=== PATIENT | female | born 1995 | race American Indian/Alaskan Native ===

== ENCOUNTER 2016-10-07 14:02 | Emergency (ER) | payer MEDICAID ==
[2016-10-07 14:30] VITALS: BP 106/67
--- NOTE | 2016-10-07 14:42 | Emergency Department Report ---
Chief Complaint: Abdominal Pain Stated Complaint: N/V SEVERE CRAMPS Time Seen by Provider: 10/07/16 14:37 - HPI History of Present Illness: 20 y/o female complain of abdominal pain x 2 weeks.pt state she unaware when last menstrual cycle .pt complain of n/v at present .denies any prior medical treatment . - ROS Review of Systems: per HPI - Exam Vital Signs: Vital Signs 10/07/16 14:27 Temperature 98.8 F Pulse Rate 66 Respiratory 16 Rate Blood Pressure 106/67 O2 Sat by Pulse 99 Oximetry Physical Exam: GENERAL: The patient is well-developed and well-nourished. Patient is in NAD. HENT: Normocephalic. Atraumatic. Patient has moist mucous membranes. Throat: No erythema, swelling or exudates. Ears:Tympanic membranes pearly branch ,intact , and free of exudate and erythema . EYES: Extraocular motions are intact, PERRL NECK: Supple. No meningitic signs are noted. There is no adenopathy noted. CHEST/LUNGS: Clear to auscultation bilaterally. No wheezing, rales or rhonchi noted. There is no respiratory distress noted. HEART/CARDIOVASCULAR: Regular rate and rhythm. Normal S1 S2. No murmurs, rubs , clicks, or gallops. ABDOMEN: Abdomen is soft, nontender.. Bowel sounds normoactive. There is no abdominal distention. Negative rebound tenderness. : Deferred. SKIN: There is no rash. There is no edema. There is no diaphoresis.Normal skin turgor NEURO: The patient is A&Ox3. The patient has no focal neurologic deficits. MUSCULOSKELETAL: There is no tenderness or deformity. There is no limitation range of motion. posture erect.Spine aligned,no deformities. PSYCH: Pt has appropriate mood and affect. MSE screening note: Focused history and physical exam performed. Due to findings the following was ordered: ED Disposition for MSE Condition: Stable Instructions: Abdominal Pain (ED)
[2016-10-07 15:55] LABS: Basophils % (Auto) 0.8 % (0.0-1.8); Eosinophils % (Auto) 1.6 % (0.0-4.3); Hematocrit 35.4 % (30.3-42.9); Hemoglobin 12.1 gm/dl (10.1-14.3); Mean Corpuscular HGB Conc 34 % (30-34); Mean Corpuscular Hemoglobin 30 pg (28-32); Mean Corpuscular Volume 87 fl (79-97); Platelet Count 288 K/mm3 (140-440); Red Blood Count 4.06 M/mm3 (3.65-5.03); Red Cell Distribution Width 15.7 % (13.2-15.2); White Blood Count 6.3 K/mm3 (4.5-11.0)
[2016-10-07 16:09] LABS: Amylase 53 units/L (27-131); BUN/Creatinine Ratio 8.33; Blood Urea Nitrogen 5 mg/dL (7-17); Calcium 8.8 mg/dL (8.4-10.2); Carbon Dioxide 24 mmol/L (22-30); Glucose 78 mg/dL (65-100); Lipase 30 units/L (13-60); Potassium 3.7 mmol/L (3.6-5.0); Sodium 137 mmol/L (137-145)
[2016-10-07 16:10] LABS: Anion Gap 16 mmol/L
[2016-10-07 17:00] LABS: Bacteria,Urine 3+ /HPF (Negative); Bilirubin,Urine NEG (Negative); Blood,Urine NEG (Negative); Ketones,Urine NEG (Negative); Leukocyte Esterase,Urine NEG (Negative); Mucus,Urine FEW /HPF; Nitrite,Urine NEG (Negative); Protein,Urine <15 mg/dL mg/dL (Negative); Urobilinogen,Urine < 2.0 mg/dL (<2.0)
[2016-10-07] MEDS ORDERED: ZOFRAN IV ONE (20:24)
--- NOTE | 2016-10-07 20:29 | Emergency Department Report ---
ED Female HPI - General Chief complaint: Abdominal Pain Stated complaint: N/V SEVERE CRAMPS Time Seen by Provider: 10/07/16 20:13 Source: patient Mode of arrival: Ambulatory Limitations: No Limitations - History of Present Illness Initial comments: 20-year-old female with no safety past medical history presents to the hospital complaining of abdominal cramps, intermittent nausea vomiting, vaginal spotting. LMP in August. Patient states her home test was negative one week ago. HCG positive here. Patient's second and she has one child. Denies any history of miscarriages, abortions, ectopic pregnancies. Patient states she has had intermittent nausea and vomiting and cramping for the last 2 weeks with loose stool as well. Vaginal spotting times one day reported. Last sexual intercourse 2 days ago. Cramping pain rated as 7 /10 in intensity, intermittent, without aggravating or alleviating factors. - Related Data Previous Rx's Medication Instructions Recorded Last Taken Type Cephalexin [Keflex] 500 mg PO Q8HR #20 cap 10/16/15 Unknown Rx HYDROcodone/APAP 10-325 [[place] 1 each PO Q8HR PRN #20 tablet 10/16/15 Unknown Rx 10/325] Metoclopramide [Reglan] 10 mg PO AC #30 tablet 10/16/15 Unknown Rx Ibuprofen [Motrin 600 MG tab] 600 mg PO Q8H PRN #30 tablet 04/13/16 Unknown Rx Multivitamin with Iron 1 each PO DAILY #30 tablet 04/13/16 Unknown Rx [Multivitamins with Iron] oxyCODONE /ACETAMINOPHEN [Percocet 1 tab PO Q6HR PRN #30 tablet 04/13/16 Unknown Rx 5/325] Ondansetron [Zofran Odt] 4 mg PO Q8HR PRN #20 tab.rapdis 10/07/16 Unknown Rx Vit-Fe Fumar-FA [ 1 tab PO QDAY #30 tablet 10/07/16 Unknown Rx Vitamin] Allergies Allergy/AdvReac Type Severity Reaction Status Date / Time No Known Allergies Allergy Verified 10/15/15 18:25 ED Review of Systems ROS: Stated complaint: N/V SEVERE CRAMPS Other details as noted in HPI Comment: All other systems reviewed and negative Other: Constitutional: No fevers chills Eyes: No eye pain visual changes ENT: No ear pain or throat pain Neck: Denies pain Respiratory: Denies cough wheezing shortness of breath Cardiovascular: Denies chest pain, palpitations, syncope GI: As per HPI : Denies dysuria, urinary frequency, or urgency Musculoskeletal: Denies back pain, joint swelling Skin: Denies rash, lesions Neurologic: Denies headache, numbness, weakness Psychiatric: Denies suicidal ideation, hallucinations ED Past Medical Hx - Past Medical History Hx Hypertension: No Hx Heart Attack/AMI: No Hx Congestive Heart Failure: No Hx Diabetes: No Hx Deep Vein Thrombosis: No Hx Liver Disease: No Hx Renal Disease: No Hx Sickle Cell Disease: No Hx Seizures: No Hx Asthma: Yes Hx COPD: No Hx HIV: No Additional medical history: . Tetanus not up to date - Surgical History Additional Surgical History: - Social History Smoking Status: Never Smoker Substance Use Type: None - Medications Home Medications: Home Medications Medication Instructions Recorded Confirmed Last Taken Type Cephalexin [Keflex] 500 mg PO Q8HR #20 cap 10/16/15 04/13/16 Unknown Rx HYDROcodone/APAP 10-325 [[place] 1 each PO Q8HR PRN #20 tablet 10/16/15 04/13/16 Unknown Rx 10/325] Metoclopramide [Reglan] 10 mg PO AC #30 tablet 10/16/15 04/13/16 Unknown Rx Ibuprofen [Motrin 600 MG tab] 600 mg PO Q8H PRN #30 tablet 04/13/16 Unknown Rx Multivitamin with Iron 1 each PO DAILY #30 tablet 04/13/16 Unknown Rx [Multivitamins with Iron] oxyCODONE /ACETAMINOPHEN [Percocet 1 tab PO Q6HR PRN #30 tablet 04/13/16 Unknown Rx 5/325] Ondansetron [Zofran Odt] 4 mg PO Q8HR PRN #20 tab.rapdis 10/07/16 Unknown Rx Vit-Fe Fumar-FA [ 1 tab PO QDAY #30 tablet 10/07/16 Unknown Rx Vitamin] ED Physical Exam - General Limitations: No Limitations - Other Other exam information: General: No limitations, patient is alert in no acute distress Head exam: Atraumatic, normocephalic Eyes exam: Normal appearance, pupils equal reactive to light, extraocular movements intact ENT: Moist mucous membrane, normal oropharynx Neck exam: Normal inspection, full range of motion, no meningismus nontender Respiratory exam: Clear to auscultation bilateral, no wheezes, rales, crackles Cardiovascular: Normal rate and rhythm, normal heart sounds Abdomen: Soft, nondistended, and nontender, with normal bowel sounds, no rebound, or guarding Gu: refused vag exam Extremity: Full range of motion normal inspection no deformity Back: Normal Inspection, full range of motion, no tenderness Neurologic: Alert, oriented x3, cranial nerves intact, no motor or sensory deficit Psychiatric: normal affect, normal mood Skin: Warm, dry, intact ED Course Vital Signs 10/07/16 14:27 Temperature 98.8 F Pulse Rate 66 Respiratory 16 Rate Blood Pressure 106/67 O2 Sat by Pulse 99 Oximetry ED Medical Decision Making - Lab Data Result diagrams: 10/07/16 15:19 10/07/16 15:19 Lab Results 10/07/16 10/07/16 10/07/16 Range/Units 15:19 15:19 15:19 WBC 6.3 (4.5-11.0) K/mm3 RBC 4.06 (3.65-5.03) M/mm3 Hgb 12.1 (10.1-14.3) gm/dl Hct 35.4 (30.3-42.9) % MCV 87 (79-97) fl MCH 30 (28-32) pg MCHC 34 (30-34) % RDW 15.7 H (13.2-15.2) % Plt Count 288 (140-440) K/mm3 Lymph % (Auto) 43.5 H (13.4-35.0) % [place] % (Auto) 6.4 (0.0-7.3) % Eos % (Auto) 1.6 (0.0-4.3) % Baso % (Auto) 0.8 (0.0-1.8) % Lymph # 2.8 (1.2-5.4) K/mm3 [place] # 0.4 (0.0-0.8) K/mm3 Eos # 0.1 (0.0-0.4) K/mm3 Baso # 0.1 (0.0-0.1) K/mm3 Seg Neutrophils % 47.7 (40.0-70.0) % Seg Neutrophils # 3.0 (1.8-7.7) K/mm3 Sodium 137 (137-145) mmol/L Potassium 3.7 (3.6-5.0) mmol/L Chloride 101.0 (98-107) mmol/L Carbon Dioxide 24 (22-30) mmol/L Anion Gap 16 mmol/L BUN 5 L (7-17) mg/dL Creatinine 0.6 L (0.7-1.2) mg/dL Estimated GFR > 60 ml/min BUN/Creatinine Ratio 8.33 % Glucose 78 (65-100) mg/dL Calcium 8.8 (8.4-10.2) mg/dL Amylase 53 (27-131) units/L Lipase 30 (13-60) units/L HCG, Quant 36241 H (0-4) mIU/mL Urine Color (Yellow) Urine Turbidity (Clear) Urine pH (5.0-7.0) Ur Specific [place] (1.003-1.030) Urine Protein (Negative) mg/dL Urine Glucose (UA) (Negative) mg/dL Urine Ketones (Negative) mg/dL Urine Blood (Negative) Urine Nitrite (Negative) Urine Bilirubin (Negative) Urine Urobilinogen (<2.0) mg/dL Ur Leukocyte Esterase (Negative) Urine WBC (Auto) (0.0-6.0) /HPF Urine RBC (Auto) (0.0-6.0) /HPF U Epithel Cells (Auto) (0-13.0) /HPF Urine Bacteria (Auto) (Negative) /HPF Urine Mucus /HPF 10/07/16 Range/Units 16:20 WBC (4.5-11.0) K/mm3 RBC (3.65-5.03) M/mm3 Hgb (10.1-14.3) gm/dl Hct (30.3-42.9) % MCV (79-97) fl MCH (28-32) pg MCHC (30-34) % RDW (13.2-15.2) % Plt Count (140-440) K/mm3 Lymph % (Auto) (13.4-35.0) % [place] % (Auto) (0.0-7.3) % Eos % (Auto) (0.0-4.3) % Baso % (Auto) (0.0-1.8) % Lymph # (1.2-5.4) K/mm3 [place] # (0.0-0.8) K/mm3 Eos # (0.0-0.4) K/mm3 Baso # (0.0-0.1) K/mm3 Seg Neutrophils % (40.0-70.0) % Seg Neutrophils # (1.8-7.7) K/mm3 Sodium (137-145) mmol/L Potassium (3.6-5.0) mmol/L Chloride (98-107) mmol/L Carbon Dioxide (22-30) mmol/L Anion Gap mmol/L BUN (7-17) mg/dL Creatinine (0.7-1.2) mg/dL Estimated GFR ml/min BUN/Creatinine Ratio % Glucose (65-100) mg/dL Calcium (8.4-10.2) mg/dL Amylase (27-131) units/L Lipase (13-60) units/L HCG, Quant (0-4) mIU/mL Urine Color Yellow (Yellow) Urine Turbidity Clear (Clear) Urine pH 6.0 (5.0-7.0) Ur Specific [place] 1.015 (1.003-1.030) Urine Protein <15 mg/dl (Negative) mg/dL Urine Glucose (UA) Neg (Negative) mg/dL Urine Ketones Neg (Negative) mg/dL Urine Blood Neg (Negative) Urine Nitrite Neg (Negative) Urine Bilirubin Neg (Negative) Urine Urobilinogen < 2.0 (<2.0) mg/dL Ur Leukocyte Esterase Neg (Negative) Urine WBC (Auto) 3.0 (0.0-6.0) /HPF Urine RBC (Auto) 1.0 (0.0-6.0) /HPF U Epithel Cells (Auto) 29.0 H (0-13.0) /HPF Urine Bacteria (Auto) 3+ (Negative) /HPF Urine Mucus Few /HPF - Medical Decision Making I informed patient that she will require ultrasound to make sure is in her uterus and not had tubes. She also needs a type and screen to evaluate for Rh- status. Also suggested a pelvic exam. Patient refused all treatment. She also refused IV fluids and Zofran for her reported nausea and vomiting. Patient states she will follow with her doctor tomorrow. Informed that Rh- status could mean increased risk of miscarriage is with future pregnancies. Also informed her I cannot rule out her tubes at this time. - Differential Diagnosis threatened miscarriage, early , ectopic, miscarriage Critical Care Time: No Critical care attestation.: If time is entered above; I have spent that time in minutes in the direct care of this critically ill patient, excluding procedure time. ED Disposition Clinical Impression: , Vaginal spotting, Nausea and vomiting during Disposition: LEFT AGAINST MEDICAL ADVICE Is pt being admited?: No Does the pt Need Aspirin: No Condition: Stable Instructions: (ED) Additional Instructions: You have refused vaginal examination to evaluate for bleeding. You have refused ultrasound to ensure that the is in your uterus and not in any other location that might be life-threatening i.e. ectopic . If you are and used to location this may be life-threatening. You have refused blood type evaluation to evaluate for Rh- status. If you are Rh- you will need RhoGAM to prevent future miscarriages. Follow-up with her [facility] doctor as soon as possible. Prescriptions: Ondansetron [Zofran Odt] 4 mg PO Q8HR PRN #20 tab.rapdis PRN Reason: Nausea And Vomiting Vit-Fe Fumar-FA [ Vitamin] 1 tab PO QDAY #30 tablet Referrals: LINDEN MASSEY MD [Staff Physician] - 3-5 Days Forms: AMA Form Time of Disposition: 20:52
[2016-10-07] MEDS ORDERED: D5NS 1,000 ML IV SCH (21:00)
== END 2016-10-07 20:56 | disposition left against medical advice (07) ==
LOC: ED 14:02
DX: O26.859 Spotting complicating pregnancy, unspecified trimester (principal); O21.9 Vomiting of pregnancy, unspecified; R11.0 Nausea; O99.519 Diseases of the respiratory system complicating pregnancy, unspecified trimester; Z3A.00 Weeks of gestation of pregnancy not specified
CPT/HCPCS: 36415; 80048; 81001; 82150; 83690; 84702; 85025; 99283

== ENCOUNTER 2017-05-10 21:10 | Outpatient (CLI) | payer MEDICAID ==
[2017-05-10] MEDS ORDERED: BENADRYL PO ONE (21:45)
[2017-05-10] MEDS ORDERED: BENADRYL ONE (21:47)
[2017-05-10 22:45] VITALS: BP 107/56
[2017-05-10] MEDS ORDERED: LACTATED RINGERS 1,000 ML IV SCH (23:00)
[2017-05-11] MEDS ORDERED: BRETHINE ONE (01:04)
[2017-05-11] MEDS ORDERED: BRETHINE IVP ONE (01:23)
--- NOTE | 2017-05-12 10:04 | Ultrasound Report ---
ULTRASOUND BIOPHYSICAL PROFILE: History: well being Technique: Transabdominal ultrasound with Doppler interrogation. 2 - breathing movements 2 - movements 2 - posture and tone 2 - Qualitative amniotic fluid volume 8 - TOTAL SCORE OF POSSIBLE 8 Heart Rate (bpm) 148
--- NOTE | 2017-05-13 10:37 | Ultrasound Report ---
COMPLETE OB ULTRASOUND: Unable to monitor fetus; rule out abruption. Gestation: [place]varez Position: Cephalic DEVAN = 16.1 cm Placenta: Anterior Placental Grade: 2 Heart Rate: 148 BPM BPD: 9.0 cm = 36 w 2 d HC: 32.5 cm = 36 w 5 d AC: 31.9 cm = 35 w 5 d FL: 7.3 cm = 37 w 0 d HC/AC Ratio: 1.02 Estimated Weight: 2896 grams LMP: Uncertain US Gest. Age = 36 w 3 d EDC: 06/04/17 Impression: No evidence of abruption.
== END 2017-05-11 02:25 | disposition home or self-care (01) ==
LOC: ED 21:10 → TRG 21:10 → ED 21:15 → TRG 21:15 → EDSTATUS 21:39 → TRG 22:23 → EDSTATUS 22:32 → TRG 05-11 02:25
PROVIDERS: ATTEND Obstetrics & Gynecology
DX: O26.893 Other specified pregnancy related conditions, third trimester (principal); L29.9 Pruritus, unspecified; Z3A.35 35 weeks gestation of pregnancy
CPT/HCPCS: 76816; 76819; 96360; 96361; 96369; 96370; J1200; J2930; J3105; J7120; Q0163

== ENCOUNTER 2020-06-10 12:09 | Emergency (ER) | payer MEDICAID ==
[2020-06-10] MEDS ORDERED: BUTALB/ACETAMINOPHEN/CAFFEINE TAB PO ONE (13:00)
--- NOTE | 2020-06-10 13:00 | XRay Report ---
XR chest routine 2V INDICATION / CLINICAL INFORMATION: Upper Respiratory Infection COMPARISON: None available. FINDINGS: SUPPORT DEVICES: None. HEART / MEDIASTINUM: No significant abnormality. LUNGS / PLEURA: Lungs are clear. Costophrenic sulci are sharp. No pneumothorax. ADDITIONAL FINDINGS: No significant additional findings. IMPRESSION: 1. No acute findings. Signer Name: Mamadou Wong MD Signed: 06/10/2020 12:55 PM Workstation Name: [id number]
--- NOTE | 2020-06-10 13:08 | Emergency Department Report ---
ED General Adult HPI - General Chief complaint: Upper Respiratory Infection Stated complaint: UTI/SINUS INFECTION PUI?: No Time Seen by Provider: 06/10/20 12:59 Source: patient Mode of arrival: Ambulatory Limitations: No Limitations - History of Present Illness Initial comments: 24-year-old female presenting with chief complaint of sinus congestion, associated with sinus headache, postnasal drainage, cough, chest pain with coughing, onset 2 weeks ago. She also states that she has some soreness in her back and is concerned that she may have a UTI though denies dysuria or frequency. Denies any fevers, chills, shortness of breath or any other symptoms. Symptoms were gradual in onset, constant, moderate in severity with n o alleviating factors. - Related Data Home Medications Medication Instructions Recorded Confirmed Last Taken Ferrous Sulfate [Feosol] 325 mg PO QDAY 05/24/17 05/24/17 Unknown Previous Rx's Medication Instructions Recorded Last Taken Type Vit-Fe Fumar-FA [ 1 tab PO QDAY #30 tablet 10/07/16 Unknown Rx Vitamin] Ibuprofen [Motrin] 600 mg PO Q8H PRN #30 tablet 05/23/17 Unknown Rx Ibuprofen [Motrin] 600 mg PO Q8H PRN #30 tablet 05/23/17 Unknown Rx oxyCODONE /ACETAMINOPHEN [Percocet 1 tab PO Q6HR PRN #30 tablet 05/23/17 Unknown Rx 5/325] Allergies Allergy/AdvReac Type Severity Reaction Status Date / Time No Known Allergies Allergy Verified 10/15/15 18:25 ED Review of Systems ROS: Stated complaint: UTI/SINUS INFECTION Other details as noted in HPI Comment: All other systems reviewed and negative Constitutional: no symptoms reported ENT: as per HPI Respiratory: see HPI ED Past Medical Hx - Past Medical History Previous Medical History?: No Hx Hypertension: No Hx Heart Attack/AMI: No Hx Congestive Heart Failure: No Hx Diabetes: No Hx Deep Vein Thrombosis: No Hx Liver Disease: No Hx Renal Disease: No Hx Sickle Cell Disease: No Hx Seizures: No Hx Asthma: No Hx COPD: No Hx HIV: No Additional medical history: . Tetanus not up to date - Surgical History Past Surgical History?: Yes Additional Surgical History: 2019 - Social History Smoking Status: Never Smoker Substance Use Type: None - Medications Home Medications: Home Medications Medication Instructions Recorded Confirmed Last Taken Type Vit-Fe Fumar-FA [ 1 tab PO QDAY #30 tablet 10/07/16 05/24/17 Unknown Rx Vitamin] Ibuprofen [Motrin] 600 mg PO Q8H PRN #30 tablet 05/23/17 Unknown Rx Ibuprofen [Motrin] 600 mg PO Q8H PRN #30 tablet 05/23/17 Unknown Rx oxyCODONE /ACETAMINOPHEN [Percocet 1 tab PO Q6HR PRN #30 tablet 05/23/17 Unknown Rx 5/325] Ferrous Sulfate [Feosol] 325 mg PO QDAY 05/24/17 05/24/17 Unknown History ED Physical Exam - General Limitations: No Limitations General appearance: alert, in no apparent distress - Head Head exam: Present: atraumatic, normocephalic - Eye Eye exam: Present: normal appearance - ENT ENT exam: Present: mucous membranes moist, other (Sinus congestion, postnasal drip, sinus tenderness) - Neck Neck exam: Present: normal inspection - Respiratory Respiratory exam: Present: normal lung sounds bilaterally. Absent: respiratory distress - Cardiovascular Cardiovascular Exam: Present: regular rate, normal rhythm. Absent: systolic murmur, diastolic murmur, rubs, gallop - GI/Abdominal GI/Abdominal exam: Present: soft, normal bowel sounds. Absent: distended, tenderness - Extremities Exam Extremities exam: Present: normal inspection - Back Exam Back exam: Present: normal inspection, full ROM. Absent: CVA tenderness (R), CVA tenderness (L), vertebral tenderness - Neurological Exam Neurological exam: Present: alert, oriented X3 - Psychiatric Psychiatric exam: Present: normal affect, normal mood - Skin Skin exam: Present: warm, dry, intact, normal color. Absent: rash ED Course Vital Signs 06/10/20 12:22 Temperature 98.6 F Pulse Rate 64 Respiratory 18 Rate Blood Pressure 101/58 O2 Sat by Pulse 100 Oximetry ED Medical Decision Making - EKG Data -: EKG Interpreted by Me EKG shows normal: sinus rhythm, axis, intervals, QRS complexes, ST-T waves Rate: normal - Radiology Data Radiology results: report reviewed neg cxr - Medical Decision Making Patient with URI symptoms x2 weeks and concerned that she may have a UTI due to some soreness in her back. Examination reveals sinus congestion and tenderness, clear lungs, no distress, normal vital signs. Chest x-ray ordered. While awaiting urinalysis patient stated she would not wait any longer and walked out refusing to sign AMA paperwork. - Differential Diagnosis Sinusitis, pneumonia, UTI Critical care attestation.: If time is entered above; I have spent that time in minutes in the direct care of this critically ill patient, excluding procedure time. ED Disposition Clinical Impression: Sinusitis Qualifiers: Sinusitis location: unspecified location Chronicity: acute Recurrence: not specified as recurrent Qualified Code(s): J01.90 - Acute sinusitis, unspecified Disposition: DC-07 LEFT AGAINST MED ADVICE Is pt being admited?: No Condition: Stable Referrals: PRIMARY CARE, [Primary Care Provider] - 3-5 Days Forms: AMA Form
[2020-06-10 13:24] VITALS: BP 101/58
[2020-06-10 15:22] LABS: Bilirubin,Urine NEG (Negative); Blood,Urine MOD (Negative); Color,Urine Yellow (Yellow); Mucus,Urine 2+ /HPF
[2020-06-10 15:41] LABS: HCG Qualitative,Urine Negative (Negative)
== END 2020-06-10 14:58 | disposition home or self-care (01) ==
LOC: ED 12:09
DX: J32.9 Chronic sinusitis, unspecified (principal); Z98.890 Other specified postprocedural states; Z79.1 Long term (current) use of non-steroidal anti-inflammatories (NSAID); Z79.899 Other long term (current) drug therapy
CPT/HCPCS: 71046; 81001; 81025; 87076; 87086; 87186; 93005

== ENCOUNTER 2021-06-12 17:54 | Emergency (ER) | payer MEDICAID ==
[2021-06-12 18:04] VITALS: BP 108/69
[2021-06-12] MEDS ORDERED: dexAMETHasone 20 MG/5 ML VIAL IV ONE (18:19)
[2021-06-12] MEDS ORDERED: METOCLOPRAMIDE 10 MG/2 ML INJ IV ONE (18:19)
[2021-06-12] MEDS ORDERED: diphenhydrAMINE 50 MG/ML VIAL IV ONE (18:19)
[2021-06-12] MEDS ORDERED: oxyCODONE /ACETAMINOPHEN 5-325MG TAB PO ONE (18:23)
--- NOTE | 2021-06-12 18:50 | Cat Scan Report ---
CT head/brain wo con INDICATION / CLINICAL INFORMATION: 25 years Female; R headache after head trauma. TECHNIQUE: Routine CT head without contrast. All CT scans at this location are performed using CT dos e reduction for ALARA by means of automated exposure control. COMPARISON: None. FINDINGS: BRAIN / INTRACRANIAL CONTENTS: The motion degrades the image quality. However, the visualized brain a ppears to demonstrate appropriate attenuation. The ventricular system is within normal limits in size and configuration. There is no gross CT evidence of acute intracranial hemorrhage or significant mas s effect. ORBITS: No significant abnormality of visualized orbits. SINUSES / MASTOIDS: No significant abnormality in the visualized paranasal sinuses or mastoid air brittani ls. CRANIOCERVICAL JUNCTION: No significant abnormality. ADDITIONAL FINDINGS: None. IMPRESSION: 1. There is no clear CT evidence of acute intracranial process. Signer Name: Ady Daigle MD Signed: 06/12/2021 6:46 PM Workstation Name: [id number]
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
--- NOTE | 2021-06-12 19:31 | XRay Report ---
Left ankle 3 views INDICATION: Injury FINDINGS: Alignment appears normal. Talar dome appears intact. Degenerative change within the talus a nteriorly. No displaced fracture. Left knee 3 views INDICATION: Pain FINDINGS: Alignment appears normal. No acute fracture or dislocation. Left foot 3 views INDICATION: Injury FINDINGS: MTP joints and IP joints appear normal. Midfoot alignment appears normal. Calcaneus appears intact. Left tibia and fibula 3 views INDICATION: Injury FINDINGS: Tibia and fibula appear intact. No displaced fracture is seen. Signer Name: Guille Smallwood MD Signed: 06/12/2021 7:27 PM Workstation Name: [id number]
== END 2021-06-12 20:40 | disposition left against medical advice (07) ==
LOC: ED 17:54
DX: S09.90XA Unspecified injury of head, initial encounter (principal); M25.572 Pain in left ankle and joints of left foot; Z98.890 Other specified postprocedural states; W51.XXXA Accidental striking against or bumped into by another person, initial encounter; Y93.89 Activity, other specified; Y92.89 Other specified places as the place of occurrence of the external cause; Y99.8 Other external cause status
CPT/HCPCS: 70450; 73562; 73590; 73610; 73630; 96374; 96375; 99283; J1100; J1200; J2765

== ENCOUNTER 2021-12-31 14:04 | Emergency (ER) | payer MEDICAID ==
[2021-12-31] MEDS ORDERED: MORPHINE 4 MG/1 ML INJ IV ONE ×2 (15:03→16:15)
[2021-12-31] MEDS ORDERED: ONDANSETRON 4 MG/2 ML INJ IV ONE (15:03)
--- NOTE | 2021-12-31 15:04 | Emergency Department Report ---
ED Abdominal Pain HPI - General Chief Complaint: Urogenital-Female Stated Complaint: GROIN PAIN Time Seen by Provider: 12/31/21 14:45 Source: patient, EMS Mode of arrival: Ambulatory Limitations: No Limitations - History of Present Illness Initial Comments: 26-year-old black female with no past medical history presents to the emergency department for evaluation of left lower quadrant pain that started last night. She states that she felt febrile and had some nausea vomiting along with the pain. She states that pain felt like it came out of nowhere and has been getting progressively worse since then. She denies dysuria and vaginal discharge. MD Complaint: abdominal pain -: Sudden, Last night Location: LLQ Radiation: none Migration to: no migration Severity scale (0 -10): 10 Quality: aching Consistency: constant Worsens With: movement Associated Symptoms: nausea, vomiting, fever. denies: diarrhea, chills, constipation, dysuria, hematemesis, hematochezia, melena, hematuria, anorexia, syncope - Related Data LMP (females 10-50): 1 month Home Medications Medication Instructions Recorded Confirmed Last Taken Ferrous Sulfate [Feosol] 325 mg PO QDAY 05/24/17 05/24/17 Unknown Previous Rx's Medication Instructions Recorded Last Taken Type Vit-Fe Fumar-FA [ 1 tab PO QDAY #30 tablet 10/07/16 Unknown Rx Vitamin] Ibuprofen [Motrin] 600 mg PO Q8H PRN #30 tablet 05/23/17 Unknown Rx Ibuprofen [Motrin] 600 mg PO Q8H PRN #30 tablet 05/23/17 Unknown Rx oxyCODONE /ACETAMINOPHEN [Percocet 1 tab PO Q6HR PRN #30 tablet 05/23/17 Unknown Rx 5/325] cefUROXime [Ceftin] 500 mg PO Q12H #40 tablet 06/10/20 Unknown Rx predniSONE [Deltasone] 40 mg PO QDAY #10 tab 06/10/20 Unknown Rx Allergies Allergy/AdvReac Type Severity Reaction Status Date / Time No Known Allergies Allergy Verified 12/31/21 14:09 ED Review of Systems ROS: Stated complaint: GROIN PAIN Other details as noted in HPI Comment: All other systems reviewed and negative Constitutional: fever. denies: chills Respiratory: denies: shortness of breath, SOB with exertion, SOB at rest Cardiovascular: denies: chest pain, palpitations, dyspnea on exertion Gastrointestinal: abdominal pain, nausea, vomiting. denies: diarrhea, hematemesis, melena, hematochezia Genitourinary: denies: urgency, dysuria, frequency, hematuria, discharge Musculoskeletal: denies: back pain Neurological: denies: headache, weakness, numbness, paresthesias ED Past Medical Hx - Past Medical History Hx Hypertension: No Hx Heart Attack/AMI: No Hx Congestive Heart Failure: No Hx Diabetes: No Hx Deep Vein Thrombosis: No Hx Liver Disease: No Hx Renal Disease: No Hx Sickle Cell Disease: No Hx Seizures: No Hx Asthma: No Hx COPD: No Hx HIV: No Additional medical history: . Tetanus not up to date - Surgical History Additional Surgical History: 2019 - Social History Smoking Status: Never Smoker Substance Use Type: None - Medications Home Medications: Home Medications Medication Instructions Recorded Confirmed Last Taken Type Vit-Fe Fumar-FA [ 1 tab PO QDAY #30 tablet 10/07/16 05/24/17 Unknown Rx Vitamin] Ibuprofen [Motrin] 600 mg PO Q8H PRN #30 tablet 05/23/17 Unknown Rx Ibuprofen [Motrin] 600 mg PO Q8H PRN #30 tablet 05/23/17 Unknown Rx oxyCODONE /ACETAMINOPHEN [Percocet 1 tab PO Q6HR PRN #30 tablet 05/23/17 Unknown Rx 5/325] Ferrous Sulfate [Feosol] 325 mg PO QDAY 05/24/17 05/24/17 Unknown History cefUROXime [Ceftin] 500 mg PO Q12H #40 tablet 06/10/20 Unknown Rx predniSONE [Deltasone] 40 mg PO QDAY #10 tab 06/10/20 Unknown Rx ED Physical Exam - General Limitations: No Limitations General appearance: alert, in no apparent distress - Head Head exam: Present: atraumatic, normocephalic - Eye Eye exam: Present: normal appearance. Absent: conjunctival injection - Neck Neck exam: Present: normal inspection, full ROM. Absent: tenderness, lymphadenopathy - Respiratory Respiratory exam: Present: normal lung sounds bilaterally. Absent: respiratory distress, wheezes, rales, rhonchi, stridor, chest wall tenderness - Cardiovascular Cardiovascular Exam: Present: regular rate, normal heart sounds - GI/Abdominal GI/Abdominal exam: Present: soft, tenderness (Left lower quadrant), guarding, normal bowel sounds. Absent: distended, rebound, rigid - Extremities Exam Extremities exam: Present: normal inspection, normal capillary refill. Absent: tenderness, pedal edema, joint swelling, calf tenderness - Back Exam Back exam: Present: normal inspection. Absent: CVA tenderness (R), CVA tenderness (L) - Neurological Exam Neurological exam: Present: alert, oriented X3 - Psychiatric Psychiatric exam: Present: normal affect, normal mood - Skin Skin exam: Present: warm, dry, intact, normal color ED Course Vital Signs 12/31/21 12/31/21 12/31/21 14:07 14:56 16:02 Temperature 98.9 F Pulse Rate 65 66 Respiratory Rate Blood Pressure 119/65 120/76 [Left] O2 Sat by Pulse 99 99 19 L Oximetry 12/31/21 12/31/21 17:22 19:08 Temperature 98.3 F Pulse Rate 79 Respiratory 18 20 Rate Blood Pressure 117/68 [Left] O2 Sat by Pulse 100 Oximetry ED Medical Decision Making - Lab Data Result diagrams: 12/31/21 15:35 12/31/21 15:35 - Radiology Data Radiology results: report reviewed, image reviewed ultrasound: FINDINGS: No definite intrauterine gestation is identified. Endometrium is thickened measuring 2.2 cm. ADNEXA: Right ovary is unremarkable. Probable left corpus luteal cyst. FREE FLUID: None. ADDITIONAL FINDINGS: None. IMPRESSION: No sonographic evidence of intrauterine . There is a probable left ovarian corpus luteal cyst. No other adnexal lesions or free fluid. Correlation with serial beta hCG levels and short-term sonographic follow-up ultrasound is recommended. - Medical Decision Making 26-year-old black female with no past medical history presents to the emergency department for evaluation of left lower quadrant pain that started last night. She states that she felt febrile and had some nausea vomiting along with the pain. She states that pain felt like it came out of nowhere and has been getting progressively worse since then. She denies dysuria and vaginal discharge. Qualitative urine hCG positive so quant was ordered and noted to be over 3500. Patient with history of tubal ligation in 2019. ultrasound without IUP. Given patient's history, elevated quant level, and ongoing severe pain, d iscussed case with Dr. Negin Retana, DIRECTOR [employer]NAGEMENT, who has agreed to admit patient to the OR for probable ectopic . Pain managed in the emergency department with 4 mg of morphine x2 doses, and pain improved from 10 of 10 to 5 of 10. Disposition and plan of care discussed with patient, all questions answered, and she is in agreement with plan of care. - Differential Diagnosis kidney stone, diverticulitis, ectopic Critical care attestation.: If time is entered above; I have spent that time in minutes in the direct care of this critically ill patient, excluding procedure time. ED Disposition Clinical Impression: Ectopic Qualifiers: Location of ectopic : unspecified location Intrauterine status: unspecified Qualified Code(s): O00.90 - Unspecified ectopic without intrauterine Disposition: 09 ADMITTED INPATIENT Is pt being admited?: Yes Does the pt Need Aspirin: No Condition: Stable Referrals: PRIMARY CARE, [Primary Care Provider] - 3-5 Days
[2021-12-31 15:55] LABS: Amorphous Crystals,Urine 1+; Bacteria,Urine 2+ /HPF (Negative); Bilirubin,Urine NEG (Negative); Blood,Urine NEG (Negative); Color,Urine Yellow (Yellow); Mucus,Urine FEW /HPF; Protein,Urine <15 mg/dL mg/dL (Negative); RBC,Urine < 1.0 /HPF (0.0-6.0); Urobilinogen,Urine < 2.0 mg/dL (<2.0)
[2021-12-31 16:09] LABS: Alanine Aminotransferase 10 units/L (7-56); Albumin 4.7 g/dL (3.9-5); BUN/Creatinine Ratio 11; Blood Urea Nitrogen 9 mg/dL (7-17); Calcium 9.6 mg/dL (8.4-10.2); Hemolysis Index 7
[2021-12-31 16:10] LABS: Hematocrit 36.5 % (30.3-42.9); Hemoglobin 12.4 gm/dl (10.1-14.3); Mean Corpuscular HGB Conc 34 % (30-34); Mean Corpuscular Volume 90 fl (79-97); Platelet Count 288 K/mm3 (140-440); Red Blood Count 4.08 M/mm3 (3.65-5.03); Red Cell Distribution Width 15.2 % (13.2-15.2)
--- NOTE | 2021-12-31 17:30 | Ultrasound Report ---
ULTRASOUND OBSTETRIC INDICATION / CLINICAL INFORMATION: , abdominal pain. TECHNIQUE: Transabdominal and Transvaginal. COMPARISON: None available. FINDINGS: No definite intrauterine gestation is identified. Endometrium is thickened measuring 2.2 cm. ADNEXA: Right ovary is unremarkable. Probable left corpus luteal cyst. FREE FLUID: None. ADDITIONAL FINDINGS: None. IMPRESSION: No sonographic evidence of intrauterine . There is a probable left ovarian corpus luteal cys t. No other adnexal lesions or free fluid. Correlation with serial beta hCG levels and short-term son ographic follow-up ultrasound is recommended. Signer Name: Eddie Araiza MD Signed: 12/31/2021 5:26 PM Workstation Name: [id number]
[2021-12-31] MEDS ORDERED: BUPIVACAINE/PF (0.5%) 5 MG/1 ML 30 ML VIAL INFILTRATI ONE ×2 (19:33→19:51)
[2021-12-31] MEDS ORDERED: HYDROmorphone 1 MG/1 ML INJ ONE (19:46)
[2021-12-31] MEDS ORDERED: propofoL 200 MG/20 ML VIAL IV ONE (19:46)
[2021-12-31] MEDS ORDERED: ROCURONIUM 50 MG/5 ML INJ IV ONE (19:49)
[2021-12-31] MEDS ORDERED: LIDOCAINE MPF (2%) 20 MG/1 ML VIAL 5 ML ONE (19:49)
[2021-12-31] MEDS ORDERED: SODIUM CHLORIDE 0.9% 1000 ML 1,000 ML ONE ×2 (19:51→21:29)
[2021-12-31] MEDS ORDERED: SODIUM CHLORIDE 0.9% IRR 1,500 ML BOTTLE IR ONE (19:51)
--- NOTE | 2021-12-31 20:02 | Anesthesia Day of Surgery ---
Anesthesia Day of Surgery - Day of Surgery Patient Examined: Yes Patient H&P Reviewed: Yes Patient is NPO: Yes
--- NOTE | 2021-12-31 20:02 | Anesthesia Consultation ---
Anesthesia Consult and Med Hx Date of service: 12/31/21 - Airway Anesthetic Teeth Evaluation: Good ROM Head & Neck: Adequate Mental/Hyoid Distance: Adequate Mallampati Class: Class II Intubation Access Assessment: Probably Good - Pre-Operative Health Status ASA Pre-Surgery Classification: ASA2 Proposed Anesthetic Plan: General - Pulmonary Hx Smoking: Yes (2-3 cig/day) Hx Asthma: No COPD: No Hx Pneumonia: No - Cardiovascular System Hx Hypertension: No Hx Coronary Artery Disease: No Hx Heart Attack/AMI: No Hx Angina: No Hx Cardia Arrhythmia: No Hx Heart Murmur: No - Central Nervous System Hx Seizures: No CVA: No Hx Psychiatric Problems: No - Endocrine Hx Renal Disease: No Hx End Stage Renal Disease: No Hx Liver Disease: No Hx Non-Insulin Dependent Diabetes: No Hx Thyroid Disease: No Hx Hypothyroidism: No Hx Hyperthyroidism: No - Hematic Hx Anemia: Yes Hx Sickle Cell Disease: No - Other Systems Hx Alcohol Use: No Hx Substance Use: Yes (Marijuana 2-4/week) - Additional Comments Anesthesia Medical History Comments: ectopic
[2021-12-31] MEDS ORDERED: dexAMETHasone 20 MG/5 ML VIAL ONE (20:30)
[2021-12-31] MEDS ORDERED: ONDANSETRON 4 MG/2 ML INJ IV PRN (20:33)
[2021-12-31] MEDS ORDERED: HYDROmorphone 1 MG/1 ML INJ IV PRN ×2 (20:33)
[2021-12-31] MEDS ORDERED: ceFAZolin 1 GM VIAL ONE ×2 (20:36)
[2021-12-31] MEDS ORDERED: KETOROLAC 30 MG/1 ML INJ ONE (21:07)
[2021-12-31] MEDS ORDERED: NEOSTIGMINE 10MG/10 ML INJ MDV ONE (21:07)
[2021-12-31] MEDS ORDERED: GLYCOPYRROLATE 0.4 MG/2 ML INJ ONE (21:07)
--- NOTE | 2021-12-31 21:31 | Short Stay Summary ---
Short Stay Documentation Date of service: 12/31/21 Narrative H&P: Patient is 26-year-old 3 para 3 who presented to the ED with complaint of left lower quadrant pain since yesterday. Patient has a history of 3 previous C-sections and a tubal ligation. Patient had a prior positive test in the ED and an hCG of 3500. Patient has an ectopic we will now proceed to the operating room for management of the same. - History Principal diagnosis: Ectopic Past Medical History: No medical history Past Surgical History: (x3), Other (tubal ligation) Social history: single - Allergies and Medications Current Medications: Allergies No Known Allergies Allergy (Verified 12/31/21 14:09) Home Medications Medication Instructions Recorded Confirmed Last Taken Type Vit-Fe Fumar-FA [ 1 tab PO QDAY #30 tablet 10/07/16 05/24/17 Unknown Rx Vitamin] Ibuprofen [Motrin] 600 mg PO Q8H PRN #30 tablet 05/23/17 Unknown Rx Ibuprofen [Motrin] 600 mg PO Q8H PRN #30 tablet 05/23/17 Unknown Rx oxyCODONE /ACETAMINOPHEN [Percocet 1 tab PO Q6HR PRN #30 tablet 05/23/17 Unknown Rx 5/325] Ferrous Sulfate [Feosol] 325 mg PO QDAY 05/24/17 05/24/17 Unknown History cefUROXime [Ceftin] 500 mg PO Q12H #40 tablet 06/10/20 Unknown Rx predniSONE [Deltasone] 40 mg PO QDAY #10 tab 06/10/20 Unknown Rx Active Medications Hydromorphone HCl (Hydromorphone 1 Mg/1 Ml Inj) 0.5 mg IV Q10MIN PRN PRN Reason: Pain , Severe (7-10) Stop: 12/31/21 23:59 Hydromorphone HCl (Hydromorphone 1 Mg/1 Ml Inj) 0.25 mg IV Q10MIN PRN PRN Reason: Pain, Moderate (4-6) Stop: 12/31/21 23:59 Ondansetron HCl (Ondansetron 4 Mg/2 Ml Inj) 4 mg IV ONCE PRN PRN Reason: Nausea And Vomiting - Physical exam General appearance: mild distress, well-nourished Lungs: Clear to auscultation Breasts: deferred Heart: Regular rate, Normal S1 Gastrointestinal: normal, normoactive bowel sounds, tenderness (left lower side) Female Genitourinary: deferred Rectal Exam: deferred Extremities: No edema - Brief post op/procedure progress note Date of procedure: 12/31/21 Pre-op diagnosis: Ectopic Post-op diagnosis: same Procedure: Operative laparoscopy with left salpingectomy Anesthesia: GETA Findings: enlarged left fallopian tube with products of conception Surgeon: AKUA GONZALES Estimated blood loss: other (200cc) Pathology: list (left tube with ectopic ) Specimen disposition: to lab Condition: stable - Hospital course Hospital course: unremarkable - Disposition Condition at discharge: Stable Disposition: 01 HOME / SELF CARE / HOMELESS Short Stay Discharge Plan Activity: no restrictions, advance as tolerated Weight Bearing Status: Weight Bear as Tolerated Diet: regular Wound: open to air Follow up with: PRIMARY CARE, [Primary Care Provider] - 3-5 Days AKUA GONZALES MD [Staff Physician] - 01/16/22
--- NOTE | 2021-12-31 21:53 | Post Anesthesia Evaluation ---
- Post Anesthesia Evaluation Patient Participated: Yes Airway Patent: Yes Stable Respiratory Function: Yes Nausea/Vomiting: No Temp > 96.8F: Yes Pain Manageable: Yes Adequeate Hydration: Yes Anesthesia Complications: No Block Receding Appropriately: Not Applicable Patient on Ventilator: No
--- NOTE | 2021-12-31 21:55 | Operative Report ---
Operative Report Operative Report: Preop diagnosis: Ectopic Postop diagnosis: Same Procedure: Operative laparoscopy with left salpingectomy Surgeon: Dr. Mariya Retana Anesthesia: General EBL: 200 cc during the surgery, approximately 300 cc within the pelvis at start of surgery Urine output: 600 cc IV fluids: 1200 cc lactated Ringer's Complications: None Specimen: Left tube with evidence of left ectopic Indication: Patient is a 26-year-old 3 para 3 who presented to the emergency room with complaint of left lower quadrant pain which started on yesterday. Patient was found to have a positive test with hCG of 3500. Patient has a history of a tubal ligation 3 years ago. On ultrasound she was found to have a left adnexal mass and was concluded to have an ectopic . Findings: Markedly enlarged left tube with products of conception evident within the tube, approximately 300 cc of blood within the pelvis, Aubrey-Les Nish syndrome. The right tube and ovary were normal. Procedure: The patient sent to the OR with IV running and in place. She had been properly identified as herself and all consents were signed and placed on the chart. Patient was given general anesthesia without difficulty. She was then placed in the dorsolithotomy position and prepped and draped in normal sterile fashion. A Hutton catheter was inserted. Following this a speculum was placed to the patient's vagina the cervix was visualized and grasped with a single-tooth tenaculum. An acorn manipulator was then placed into the cervix to provide a means to manipulate the uterus. The surgeon's gloves were changed, and the tent present to the patient's abdomen. An incision was made in the umbilicus, through which a 5 mm trocar was placed. The scope was introduced into this trocar and confirmed intra-abdominal placement. The abdomen was insufflated with CO2 gas up to 20 mmHg. Under direct visualization a second incision was made in the left lower quadrant. Upon initial survey of the abdomen the previously noted findings were seen. A third trocar was then placed in the right lower quadrant. The ectopic was grasped from the fimbriated and and the broad ligament was cauterized and transected underneath the ectopic to the point of the cornua. At this point the tube and ectopic were completely free. An Endopouch was used to remove the ectopic from the left lower quadrant site. Once this was done the abdomen was then copiously irrigated with normal saline for excellent hemostasis. It was at this time that the Aubrey-Les Nish was noted adjacent to the liver. At this point all instruments removed from the patient's abdomen and pelvis. The incisions were closed with 4-0 Monocryl. The patient tolerated the procedure well. She was taken recovery in stable condition. The sponge needle and instrument counts were correct x2.
[2021-12-31 22:45] VITALS: BP 110/68
== END 2021-12-31 22:30 | disposition home or self-care (01) ==
LOC: ED 14:04
DX: O00.90 Unspecified ectopic pregnancy without intrauterine pregnancy (principal); Z90.79 Acquired absence of other genital organ(s); Z98.890 Other specified postprocedural states; Z79.899 Other long term (current) drug therapy
CPT/HCPCS: 36415; 59151; 76801; 76817; 80053; 81001; 83690; 84702; 84703; 85027; 86850; 86900; 86901; 88305; 96374; 96375; 96376; 99284; J0690; J1100; J1170; J1815; J1885; J2270; J2405; J2704; J2710; J3490; J7030

== ENCOUNTER 2022-05-27 14:26 | Emergency (ER) | payer MEDICAID ==
[2022-05-27 14:59] VITALS: BP 98/53
--- NOTE | 2022-05-27 15:00 | Emergency Department Report ---
Blank Doc - Documentation Documentation: 26-year-old female that presents with pelvic pain and vaginal bleeding. History of ectopic 12/2021. 1- This is a initial triage assessment/medical screening only. Full assessment and work-up will be completed once the patient is in proper hospital gown, ED bed and in a private room setting. This initial assessment/diagnostic orders/clinical plan/ treatment(s) is/are subject to change based on pt's health status, clinical progression and re-assessment by fellow clinical providers in the ED. Further treatment and workup at subsequent clinical providers discretion. Patient/guardians urged not to elope from ED as their condition may be serious if not clinically assessed and managed. 2-labs 3-UA The patient was evaluated in the emergency department for symptoms described in the history of present illness. He/she was evaluated in the context of the global COVID-19 pandemic, which necessitated consideration that the patient might be at risk for infection with the virus that causes COVID-19. Institutional protocols and algorithms that pertain to the evaluation of patients at risk for COVID-19 are in a state of rapid change based on information released by regulatory bodies including the CDC and federal and state organizations. These policies and algorithms were followed during the patient's care in the emergency department. Please note that these policies, procedures and recommendations changed on a rapid basis.
[2022-05-27 16:31] LABS: Basophils % (Auto) 1.1 % (0.0-1.8); Eosinophils # (Auto) 0.1 K/mm3 (0.0-0.4); Eosinophils % (Auto) 2.3 % (0.0-4.3); Hematocrit 33.2 % (30.3-42.9); Hemoglobin 11.1 gm/dl (10.1-14.3); Lymphocytes # (Auto) 1.6 K/mm3 (1.2-5.4); Lymphocytes % (Auto) 35.5 % (13.4-35.0); Mean Corpuscular HGB Conc 33 % (30-34); Mean Corpuscular Volume 91 fl (79-97); Monocytes # (Auto) 0.4 K/mm3 (0.0-0.8); Monocytes % (Auto) 9.6 % (0.0-7.3); Platelet Count 255 K/mm3 (140-440); Red Blood Count 3.67 M/mm3 (3.65-5.03); Red Cell Distribution Width 15.5 % (13.2-15.2)
[2022-05-27 16:40] LABS: INR 0.87 (0.87-1.13)
[2022-05-27 16:41] LABS: Partial Thromboplastin Time 29.3 Sec. (24.2-36.6)
== END 2022-05-28 00:20 | disposition left against medical advice (07) ==
LOC: ED 14:26
DX: O02.1 Missed abortion (principal); Z3A.00 Weeks of gestation of pregnancy not specified; Z53.21 Procedure and treatment not carried out due to patient leaving prior to being seen by health care provider
CPT/HCPCS: 36415; 84702; 85025; 85610; 85730